=== PATIENT | male | born 1985 | race Hispanic/Latino ===

== ENCOUNTER 2021-11-15 12:43 | Emergency (ER) | payer SELFPAY ==
[2021-11-15 12:53] VITALS: BP 132/82
[2021-11-15] MEDS ORDERED: fentaNYL 100 MCG/2 ML INJ IV ONE (13:50)
[2021-11-15] MEDS ORDERED: KETOROLAC 30 MG/1 ML INJ IV ONE (13:51)
[2021-11-15] MEDS ORDERED: ONDANSETRON 4 MG/2 ML INJ IV ONE (13:51)
--- NOTE | 2021-11-15 15:27 | XRay Report ---
Chest with rib series 4 views INDICATION: Right-sided chest pain following injury IMPRESSION: There is a small right-sided hydropneumothorax. The pneumothorax projects within the righ t apex and measures about 20%. There are several displaced right-sided rib fractures involving the ri ght ninth, eighth and seventh ribs (posterior lateral aspect). Signer Name: Ted Brambila MD Signed: 11/15/2021 3:23 PM Workstation Name: [id number]
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
== END 2021-11-15 16:26 | disposition left against medical advice (07) ==
LOC: ED 12:43
DX: S22.31XA Fracture of one rib, right side, initial encounter for closed fracture (principal); V89.2XXA Person injured in unspecified motor-vehicle accident, traffic, initial encounter; Y93.89 Activity, other specified; Y92.89 Other specified places as the place of occurrence of the external cause; Y99.8 Other external cause status
CPT/HCPCS: 71101; 96374; 96375; 99283; J1885; J2405; J3010